=== PATIENT | male | born 1995 | race African-American/Black ===

== ENCOUNTER 2017-06-22 18:43 | Emergency (ER) | payer MEDICAID, OTHER ==
[~2017-06-22] VITALS: Ht 172.7 cm; Wt 59.0 kg
[2017-06-22 18:58] VITALS: BP 131/95
== END 2017-06-22 22:50 | disposition left against medical advice (07) ==
LOC: ER 18:48
DX: R51 Headache (principal); M25.522 Pain in left elbow; M25.521 Pain in right elbow; Y08.89XA Assault by other specified means, initial encounter; Y93.89 Activity, other specified; Y99.8 Other external cause status; Y92.89 Other specified places as the place of occurrence of the external cause; Z53.21 Procedure and treatment not carried out due to patient leaving prior to being seen by health care provider